=== PATIENT | male | born 1970 | race Asian ===

== ENCOUNTER 2016-07-15 10:38 | Emergency (ER) | payer MEDICAID ==
[~2016-07-15] VITALS: Ht 162.6 cm; Wt 64.4 kg
[2016-07-15 12:28] VITALS: BP 155/117
[2016-07-15] MEDS ORDERED: cloNIDine HCL 0.1 MG TAB PO ONE (12:30)
== END 2016-07-15 14:02 | disposition home or self-care (01) ==
LOC: ER 10:47
DX: J30.2 Other seasonal allergic rhinitis (principal); I10 Essential (primary) hypertension
CPT/HCPCS: 71020

== ENCOUNTER 2017-03-23 09:39 | Emergency (ER) | payer MEDICAID ==
[~2017-03-23] VITALS: Ht 165.1 cm; Wt 63.5 kg
[2017-03-23 09:56] VITALS: BP 151/112
== END 2017-03-23 12:58 | disposition home or self-care (01) ==
LOC: ER 09:39
DX: N39.0 Urinary tract infection, site not specified (principal); E74.8 Other specified disorders of carbohydrate metabolism; I10 Essential (primary) hypertension
CPT/HCPCS: 81002; 82962

== ENCOUNTER 2017-05-10 18:51 | Emergency (ER) | payer MEDICAID ==
[~2017-05-10] VITALS: Ht 162.6 cm; Wt 61.7 kg
[2017-05-10] MEDS ORDERED: KETOROLAC TROMETH 60MG/2ML VIAL IM ONE ×2 (19:02→19:15)
[2017-05-10 20:09] LABS: Basophils # (auto) 0.1 uL; Basophils % (auto) 0.6 % (0.0-2.0); Eosinophils # (auto) 0.1 uL; Eosinophils % (auto) 0.6 % (0.0-7.0); Hematocrit 47.5 % (41.0-53.0); Hemoglobin 15.7 g/dL (13.5-17.5); Lymphocytes % (auto) 6.6 % (10.0-50.0); Mean Corpuscular Hemoglobin 29.1 pg (28.0-32.0); Mean Corpuscular Hgb Conc. 33.1 g/dL (32.0-36.0); Monocytes # (auto) 0.5 uL; Monocytes % (auto) 3.1 % (0.0-12.0); Neutrophils # (auto) 13.2 uL; Neutrophils % (auto) 89.1 % (37.0-80.0); Platelet Count (auto) 268 10^3/uL (140-450); Red Cell Distribution Width 13.6 % (11.8-14.3); White Blood Cell 14.9 10^3/uL (4.4-10.8)
[2017-05-10 20:28] LABS: BUN/Creatinine Ratio 9.5; Bilirubin, Total 0.4 mg/dL (0.2-1.0); Calcium 8.6 mg/dL (8.5-10.1); Potassium 3.6 mmol/L (3.5-5.1); Total Protein 7.7 g/dL (6.4-8.2)
[2017-05-11] MEDS ORDERED: NALBUPHINE HCL 10 MG/1ml INJECTION IV ONE (01:00)
[2017-05-11] MEDS ORDERED: SODIUM CHLORIDE 0.9% 1,000 ML IV ONE (01:00)
[2017-05-11] MEDS ORDERED: ONDANSETRON HCL 4 MG/2 ML VIAL IV ONE (01:00)
[2017-05-11 02:00] VITALS: BP 130/83
== END 2017-05-11 02:36 | disposition home or self-care (01) ==
LOC: ER 18:51
DX: N20.1 Calculus of ureter (principal); K76.0 Fatty (change of) liver, not elsewhere classified; I10 Essential (primary) hypertension; Z87.440 Personal history of urinary (tract) infections
CPT/HCPCS: 36415; 74176; 80053; 85025; 96361; 96372; 96374; 96375; 99285; J1885; J2300; J2405; J7030

== ENCOUNTER 2017-08-01 06:21 | Emergency (ER) | payer MEDICAID ==
[~2017-08-01] VITALS: Ht 160 cm; Wt 51.7 kg
[2017-08-01] MEDS: cloNIDine HCL 0.1 MG TAB PO ONE (06:45)
[2017-08-01] MEDS: cloNIDine HCL 0.1 MG TAB ONE (06:46)
[2017-08-01 07:45] VITALS: BP 154/112
[2017-08-01 08:37] LABS: Urine Blood Negative /uL (Negative); Urine Specific Gravity 1.004 (1.001-1.035)
[2017-08-01 08:38] LABS: Urine Amorphous Crystal FEW /hpf (None Seen); Urine Bacteria NONE SEEN /hpf (None Seen); Urine Mucus FEW (None Seen); Urine WBC <1 /hpf (0 - 3)
== END 2017-08-01 07:55 | disposition home or self-care (01) ==
LOC: ER 06:23
DX: N39.0 Urinary tract infection, site not specified (principal); I10 Essential (primary) hypertension; Z87.440 Personal history of urinary (tract) infections
CPT/HCPCS: 81001

== ENCOUNTER 2018-07-07 10:54 | Emergency (ER) | payer MEDICAID ==
[~2018-07-07] VITALS: Ht 160 cm; Wt 63.5 kg
[2018-07-07 11:18] VITALS: BP 167/99
[2018-07-07] MEDS ORDERED: cloNIDine HCL 0.1 MG TAB PO ONE (11:30)
[2018-07-07] MEDS ORDERED: cloNIDine HCL 0.1 MG TAB ONE (11:30)
[2018-07-07 11:45] LABS: Basophils # (auto) 0.1 uL; Basophils % (auto) 1.1 % (0.0-2.0); Eosinophils # (auto) 0 uL; Eosinophils % (auto) 0.6 % (0.0-7.0); Hemoglobin 19.1 g/dL (13.5-17.5); Lymphocytes # (auto) 1.3 uL; Neutrophils % (auto) 76.2 % (37.0-80.0); Red Cell Distribution Width 14.3 % (11.8-14.3)
[2018-07-07 11:47] LABS: Lymphocytes % (auto) 17.6 % (10.0-50.0); Mean Corpuscular Hemoglobin 30.1 pg (28.0-32.0); Mean Corpuscular Hgb Conc. 33.5 g/dL (32.0-36.0); Mean Corpuscular Volume 89.7 fL (80.0-100.0); Monocytes # (auto) 0.3 uL; Monocytes % (auto) 4.5 % (0.0-12.0); Neutrophils # (auto) 5.5 uL; Platelet Count (auto) 245 10^3/uL (140-450); Red Blood Cells 6.35 10^6/uL (4.5-5.90); White Blood Cell 7.2 10^3/uL (4.4-10.8)
[2018-07-07 12:05] LABS: Albumin 3.9 g/dL (3.4-5.0); BUN/Creatinine Ratio 7.7; Calcium 8.5 mg/dL (8.5-10.1); Potassium 3.5 mmol/L (3.5-5.1)
[2018-07-07 12:08] LABS: Bilirubin, Total 0.6 mg/dL (0.2-1.0); Total Protein 7.7 g/dL (6.4-8.2)
== END 2018-07-07 12:21 | disposition home or self-care (01) ==
LOC: ER 10:54
DX: I16.0 Hypertensive urgency (principal); I10 Essential (primary) hypertension
CPT/HCPCS: 36415; 80053; 85025; 94761

== ENCOUNTER 2018-12-08 23:07 | Emergency (ER) | payer MEDICAID ==
[~2018-12-08] VITALS: Ht 165.1 cm; Wt 65.8 kg
[2018-12-09 01:03] LABS: Urine Bacteria FEW /hpf (None Seen); Urine Blood 3+ /uL (Negative); Urine Mucus FEW (None Seen); Urine Specific Gravity 1.013 (1.001-1.035); Urine WBC 9 /hpf (0 - 3)
[2018-12-09 07:41] VITALS: BP 144/104
== END 2018-12-09 07:46 | disposition home or self-care (01) ==
LOC: ER 23:11
DX: N39.0 Urinary tract infection, site not specified (principal); I10 Essential (primary) hypertension; Z87.440 Personal history of urinary (tract) infections
CPT/HCPCS: 81001

== ENCOUNTER 2020-10-09 21:30 | Emergency (ER) | payer MEDICAID ==
[~2020-10-09] VITALS: Ht 160 cm; Wt 54.4 kg
[2020-10-09 22:51] LABS: Basophils # (auto) 0.2 10 ^3/uL (0-0.2); Basophils % (auto) 1.4 % (0.0-2.0); Eosinophils # (auto) 0.2 10 ^3/uL (0-0.8); Eosinophils % (auto) 1.7 % (0.0-7.0); Hematocrit 48.8 % (41.0-53.0); Hemoglobin 17.1 g/dL (13.5-17.5); Lymphocytes # (auto) 2.2 10 ^3/uL (0.4-5.4); Lymphocytes % (auto) 20.6 % (10.0-50.0); Mean Corpuscular Hemoglobin 30.1 pg (28.0-32.0); Monocytes # (auto) 0.8 10 ^3/uL (0-1.3); Monocytes % (auto) 7.4 % (0.0-12.0); Neutrophils # (auto) 7.5 10 ^3/uL (1.6-8.6); Neutrophils % (auto) 68.9 % (37.0-80.0); Nucleated Red Blood Cells % 0.1 %; Platelet Count (auto) 334 10^3/uL (140-450); Red Blood Cells 5.68 10^6/uL (4.5-5.90); Red Cell Distribution Width 13.6 % (11.8-14.3); White Blood Cell 10.9 10^3/uL (4.4-10.8)
[2020-10-09 23:07] LABS: BUN/Creatinine Ratio 14.5; Calcium 9.3 mg/dL (8.5-10.1); Potassium 3.6 mmol/L (3.5-5.1)
[2020-10-10 07:16] VITALS: BP 139/99
== END 2020-10-10 07:23 | disposition home or self-care (01) ==
LOC: ER 21:32
DX: N39.0 Urinary tract infection, site not specified (principal); I10 Essential (primary) hypertension; Z87.440 Personal history of urinary (tract) infections
CPT/HCPCS: 36415; 80048; 81002; 85025